=== PATIENT | female | born 1945 | race Caucasian/White ===

== ENCOUNTER 2017-10-29 10:14 | Emergency (ER) | payer MEDICARE, OTHER ==
[2017-10-29] MEDS ORDERED: Ibuprofen 800 MG TAB ONE (11:07)
== END 2017-10-29 11:30 | disposition home or self-care (01) ==
LOC: ERS 10:14
DX: J11.1 Influenza due to unidentified influenza virus with other respiratory manifestations (principal); E78.5 Hyperlipidemia, unspecified; Z85.3 Personal history of malignant neoplasm of breast
CPT/HCPCS: 87804; 99283

== ENCOUNTER 2017-12-06 09:09 | Outpatient (CLI) | payer MEDICARE, OTHER | END 2017-12-06 09:10 | disposition home or self-care (01) | LOC: BICMAMMO 09:09 | PROVIDERS: ATTEND Family Medicine | DX: Z12.31 Encounter for screening mammogram for malignant neoplasm of breast (principal); Z80.3 Family history of malignant neoplasm of breast; N64.89 Other specified disorders of breast | CPT/HCPCS: 77063; 77067 ==

== ENCOUNTER 2017-12-11 14:27 | Outpatient (CLI) | payer MEDICARE, OTHER | END 2017-12-11 14:28 | disposition home or self-care (01) | LOC: BICMAMMO 14:27 | PROVIDERS: ATTEND Family Medicine | DX: Z85.3 Personal history of malignant neoplasm of breast; R92.1 Mammographic calcification found on diagnostic imaging of breast | CPT/HCPCS: 77065; G0279 ==

== ENCOUNTER 2018-12-07 11:37 | Outpatient (CLI) | payer MEDICARE, OTHER ==
--- NOTE | 2018-12-26 15:52 | MMO ---
Bilateral MAMMO Bilat Screen [facility]. CLINICAL HISTORY: Patient is 73 years old and is seen for screening. The patient has the following family history of breast cancer: 2 maternal aunts; mother, at age 70 and sister, at age 60. The patient has a history of lobular left breast carcinoma at age 60 and lymphoma at age 52. The patient has a history of left Lumpectomy at age 60 - malignant. VIEWS: The views performed were: bilateral craniocaudal with tomosynthesis and bilateral mediolateral oblique with tomosynthesis. FILMS COMPARED: The present examination has been compared to prior imaging studies performed at [facility] 07/29/2014, and at [facility] on 11/04/2015, 11/09/2016, 12/06/2017 and 12/11/2017. MAMMOGRAM FINDINGS: The breasts are heterogeneously dense, which could obscure a lesion on mammography. There are stable benign appearing calcifications seen in both breasts. There are no suspicious masses, suspicious calcifications, or new areas of architectural distortion. IMPRESSION: THERE IS NO MAMMOGRAPHIC EVIDENCE OF MALIGNANCY. A ROUTINE FOLLOW-UP MAMMOGRAM IN 1 YEAR IS RECOMMENDED. THE RESULTS OF THIS EXAM WERE SENT TO THE PATIENT. ACR BI-RADS Category 2 - Benign finding MAMMOGRAPHY NOTE: 1. A negative mammogram report should not delay a biopsy if a dominant of clinically suspicious mass is present. 2. Approximately 10% to 15% of breast cancers are not detected by mammography. 3. Adenosis and dense breasts may obscure an underlying neoplasm.
== END 2018-12-07 11:38 | disposition home or self-care (01) ==
LOC: BICMAMMO 11:37
PROVIDERS: ATTEND Family Medicine
DX: Z12.31 Encounter for screening mammogram for malignant neoplasm of breast (principal); Z85.3 Personal history of malignant neoplasm of breast; Z85.72 Personal history of non-Hodgkin lymphomas; Z80.3 Family history of malignant neoplasm of breast
CPT/HCPCS: 77063; 77067

== ENCOUNTER 2019-05-01 08:40 | Outpatient (CLI) | payer MEDICARE ==
--- NOTE | 2019-05-01 13:13 | NM ---
Exam: Nuclear medicine parathyroid scan HISTORY: Elevated calcium levels. Previous right thyroidectomy. Comparison: None TECHNIQUE: Patient was administered 25.6 millicuries of technetium 99m sestamibi intravenously. Plana r and SPECT imaging is performed FINDINGS: There is radiotracer localization in the parotid and salivary glands which is expected. There is also increased radiotracer localization in the left thyroid bed which is expected. On the immediate, 1 hour and 2 hour images, there is radiotracer localization in the left aspect of the neck. Correlation made with SPECT imaging demonstrates a soft tissue nodule which corresponds to a radiotracer localization. The possibility of a right-sided parathyroid adenoma is raised. Better interrogation wi th a parathyroid soft tissue neck CT is recommended IMPRESSION: Persistent radiotracer localization in the right thyroid bed, in a patient with a reported right thyr oid lobectomy. CT used for attenuation correction does demonstrate a soft tissue mass, corresponding to radiotracer localization. Better interrogation with a soft tissue neck CT utilizing parathyroid protocol is recommended CODE T Transcribed Date/Time: 05/01/2019 1:21 PM
== END 2019-05-01 08:41 | disposition home or self-care (01) ==
LOC: NM 08:40
PROVIDERS: ATTEND Specialist
DX: E21.3 Hyperparathyroidism, unspecified (principal); E89.0 Postprocedural hypothyroidism
CPT/HCPCS: 78072; A9500

== ENCOUNTER 2019-05-16 07:52 | Outpatient (CLI) | payer MEDICARE ==
--- NOTE | 2019-05-16 10:12 | CT ---
PRE AND POSTCONTRAST SOFT TISSUE NECK CT: HISTORY: Hyperparathyroidism. Elevated calcium level. Previous right thyroidectomy. COMPARISON: None. Correlation: Nuclear medicine parathyroid with SPECT. FINDINGS: Limited evaluation the oral cavity due to dental amalgam artifact. Midline fatty raphae of the tongue is preserved. No obvious masses in the oral cavity. Epiglottis has a normal caliber. Preepiglottic fat is preserved. Supraglottic, glottic and subglottic larynx have appropriate appearance and configuration Symmetric attenuation of the sternocleidomastoid muscles. Appropriate attenuation of the visualized salivary glands. No evidence of lymphadenopathy by size criteria. Cervical spine vertebral body height is maintained. No fracture. Degenerative change with loss of dis c space height and osteophyte formation at C3-C4, C4-C5, C5-C6 and C6-C7. Visualized great vessels of the neck are grossly unremarkable. Upper mediastinum and lung apices are unremarkable. Subcentimeter hypodensities in the left thyroid lobe can be further evaluated with nonemergent ultras ound. Thyroid isthmus and right thyroid lobe appear to be surgically absent. In the right thyroid bed, ther e is a nonenhancing intrinsically hypodense mass which does demonstrate enhancement, without significant washout. Attenuation coefficient of the noncontrast sequences 52 Hounsfield units, attenu ation coefficient on the 25 second delay images 143 Hounsfield units and attenuation coefficient on the 65 second delay images 150 Hounsfield units. This lesion is felt to correspond to the hypermetabo lic focus noted on previous nuclear medicine scan. Lesion measures 1.3 x 1.5 cm and is felt to represent an enlarge right parathyroid adenoma. IMPRESSION: Intrinsically hypodense lesion with associated enhancement in the right parathyroid bed. This mass co rresponds to the lesion noted on recent nuclear medicine parathyroid scan and a right parathyroid adenoma is favored. Transcribed Date/Time: 05/16/2019 10:52 AM
[2019-05-16] MEDS ORDERED: Iopamidol 370 76% 100 ML VIAL ONE (15:19)
[2019-05-16] MEDS ORDERED: Iopamidol 370 76% 50 ML VIAL FS ONE (15:19)
== END 2019-05-16 07:53 | disposition home or self-care (01) ==
LOC: CT 07:52
PROVIDERS: ATTEND Specialist
DX: E21.3 Hyperparathyroidism, unspecified (principal); E21.4 Other specified disorders of parathyroid gland
CPT/HCPCS: 70492; 82565; Q9967

== ENCOUNTER 2019-05-30 07:14 | Day surgery (SDC) | payer MEDICARE ==
[2019-05-29 09:17] VITALS: BMI 25.8
[2019-05-30] MEDS ORDERED: Lidocaine 1% w/Epinephrine 1:100K 20 ML VIAL ONE (08:53)
[2019-05-30] MEDS ORDERED: Fentanyl 100 MCG/2 ML VIAL ONE ×2 (08:54)
[2019-05-30] MEDS ORDERED: Dexmedetomidine 200 MCG/2 ML VIAL ONE (08:55)
[2019-05-30 09:00] LABS: Hemoglobin 12.5 g/dL (12.0-16.0); Platelet Count 79 thou/uL (130-400)
[2019-05-30 09:16] LABS: Anion Gap 10 mmol/L (10-20); BUN (Urea Nitrogen) 16 mg/dL (9.8-20.1); Calc. Creatinine Clearance 54 mL/min (70-130); Carbon Dioxide 21 mmol/L (23-31); Chloride 108 mmol/L (98-107); Estimated GFR-MDRD 51; Glucose 89 mg/dL (83-110); Potassium 4.2 mmol/L (3.5-5.1); Sodium 135 mmol/L (136-145)
[2019-05-30 09:33] LABS: Calcium 12.4 mg/dL (7.8-10.44)
[2019-05-30] MEDS ORDERED: ePHEDrine/0.9% NaCl/PF SYRINGE 50 mg/10 ml ONE (09:50)
[2019-05-30] MEDS ORDERED: Hydrocodone-Acetamin 15 ML UDCUP ONE (11:57)
[2019-05-30] MEDS ORDERED: Rocuronium Bromide 10 MG/ML (10ML VIAL) ONE (13:52)
[2019-05-30] MEDS ORDERED: Lidocaine 1% PF 5 ML VIAL ONE (13:52)
[2019-05-30] MEDS ORDERED: ePHEDrine 50 MG/ML VIAL ONE (13:52)
[2019-05-30] MEDS ORDERED: Glycopyrrolate 0.2 MG/ML 5 ML SYRINGE ONE (13:52)
[2019-05-30] MEDS ORDERED: Dexamethasone 20 MG/5 ML VIAL ONE (13:52)
[2019-05-30] MEDS ORDERED: PROPOFOL 200 MG/20 ML VIAL ONE (13:52)
[2019-05-30] MEDS ORDERED: Ondansetron PF 4 MG/2 ML Vial ONE (13:52)
--- NOTE | 2019-05-30 17:09 | EKG ---
Test Reason : PREOP Blood Pressure : / mmHG Vent. Rate : 051 BPM Atrial Rate : 051 BPM P-R Int : 190 ms QRS Dur : 106 ms QT Int : 404 ms P-R-T Axes : 054 -30 020 degrees QTc Int : 372 ms Sinus bradycardia Left axis deviation Moderate voltage criteria for LVH, may be normal variant cannot r/o anterior TN Abnormal ECG When compared with ECG of 23-MAY-2008 08:31, No significant change was found Confirmed by DR. Kayli GAYTAN ([id number]) on 05/30/2019 5:09:18 PM Referred By: NICK Confirmed By:DR. Kayli GAYTAN
--- NOTE | 2019-05-31 10:48 | OP ---
DATE OF PROCEDURE: 05/30/2019 PREOPERATIVE DIAGNOSIS: Primary hyperparathyroidism. POSTOPERATIVE DIAGNOSIS: Primary hyperparathyroidism. PROCEDURE PERFORMED: Right neck exploration with removal of large right parathyroid gland. FINDINGS: Large gland was identified deep in the tracheoesophageal groove of previous thyroidectomy bed. DESCRIPTION OF PROCEDURE: After consent was obtained, the patient was identified and brought to the OR and placed on the operating room table in supine position. General endotracheal anesthesia obtained with laryngeal nerve monitoring endotracheal tube and the patient was positioned for surgery. A neck incision was made in the natural skin crease over where we anticipated to find the lesion and carried down through the skin and subcutaneous tissues. Strap muscles were divided midline and the surgery was somewhat complicated by the fact that she previously had a right thyroidectomy and there was extensive scarring of the strap muscles and the sternocleidomastoid muscle. With meticulous dissection, we were able to ultimately identify the adenoma in the right tracheoesophageal groove and also identify the recurrent laryngeal nerve. With great care, we were dissected the lesion from the surrounding tissues without injuring the normal parathyroid gland over the recurrent laryngeal nerve nor any of the contents of the neurovascular bundle. The specimen was sent for histologic evaluation and found to be consistent with a large over 1.5 g lesion, which was hypercellular and consistent with an adenoma. We then obtained hemostasis, turned our attention towards closing the wound where the platysma was closed with interrupted Monocryl and the skin was closed with 6-0 Prolene. The patient was then awakened, extubated, and taken to recovery room in stable condition where she remained stable and the voice was strong. Job ID: [id number]
== END 2019-05-30 12:30 | disposition home or self-care (01) ==
LOC: SDC 07:14
PROVIDERS: ATTEND Specialist
PROC: 0GBR0ZZ Excision of Parathyroid Gland, Open Approach (ICD-10-PCS; principal; 2019-05-30)
DX: D35.1 Benign neoplasm of parathyroid gland (principal); E21.0 Primary hyperparathyroidism; E78.00 Pure hypercholesterolemia, unspecified; E78.5 Hyperlipidemia, unspecified; M81.0 Age-related osteoporosis without current pathological fracture; Z88.8 Allergy status to other drugs, medicaments and biological substances
CPT/HCPCS: 80048; 85014; 85018; 85049; 88305; 88325; 88331; 88334; 93005; 93010; J0131; J1100; J2001; J2405; J2704; J3010; J3490

== ENCOUNTER 2020-08-25 09:55 | Outpatient (CLI) | payer MEDICARE, OTHER ==
--- NOTE | 2020-08-25 10:25 | MMO ---
Bilateral MAMMO Bilat Screen [facility]. CLINICAL HISTORY: Patient is 75 years old and is seen for screening. The patient has the following family history of breast cancer: 2 maternal aunts; mother, at age 70 and sister, at age 60. The patient has a history of lobular left breast carcinoma at age 60 and lymphoma at age 52. The patient has a history of left Lumpectomy at age 60 - malignant. VIEWS: The views performed were: bilateral craniocaudal with tomosynthesis and bilateral mediolateral oblique with tomosynthesis. FILMS COMPARED: The present examination has been compared to prior imaging studies performed at [facility] on 11/09/2016, 12/06/2017, 12/11/2017 and 12/07/2018. This study has been interpreted with the assistance of computer-aided detection. MAMMOGRAM FINDINGS: The breasts are heterogeneously dense, which could obscure a lesion on mammography. Finding 1: There are stable benign appearing calcifications seen in both breasts. Finding 2: There are stable post operative changes seen in the left breast. There are no suspicious masses, suspicious calcifications, or new areas of architectural distortion. IMPRESSION: THERE IS NO MAMMOGRAPHIC EVIDENCE OF MALIGNANCY. A ROUTINE FOLLOW-UP MAMMOGRAM IN 1 YEAR IS RECOMMENDED. THE RESULTS OF THIS EXAM WERE SENT TO THE PATIENT. ACR BI-RADS Category 2 - Benign finding MAMMOGRAPHY NOTE: 1. A negative mammogram report should not delay a biopsy if a dominant of clinically suspicious mass is present. 2. Approximately 10% to 15% of breast cancers are not detected by mammography. 3. Adenosis and dense breasts may obscure an underlying neoplasm. Reported by: SAMEER ADAMS MD Electonically Signed: [id number]
== END 2020-08-25 09:56 | disposition home or self-care (01) ==
LOC: BICMAMMO 09:55
PROVIDERS: ATTEND Family Medicine
DX: Z12.31 Encounter for screening mammogram for malignant neoplasm of breast (principal); Z80.3 Family history of malignant neoplasm of breast; Z85.3 Personal history of malignant neoplasm of breast
CPT/HCPCS: 77063; 77067